=== PATIENT | female | born 1945 | race American Indian/Alaskan Native ===

== ENCOUNTER → 2017-12-16 | Outpatient (CLI) | payer MEDICARE, OTHER ==
[~2017-12-16] MED LIST: BENZ100A PO; BUME1 PO; CLON.2 PO; HYDR1TAB94 PO; Micro-K10 MEQ; NEBI5 PO; TOCO400 PO; VITAMIN B122500 MCG PO; VITAMIN D5000 UNIT PO; Zofran4 MG PO
== END ==
LOC: LAB SHORT 16:39 → LAB 16:39
DX: N39.0 Urinary tract infection, site not specified (principal)
CPT/HCPCS: 87086

== ENCOUNTER 2018-11-18 00:26 | Day surgery (SDC) | payer MEDICARE, OTHER ==
[2018-11-18] MEDS ORDERED: NEBI10 PO ×2 (09:54→09:55)
[2018-11-18] MEDS ORDERED: EDARBYCLOR 40-1 EACH PO (09:55)
[2018-11-18] MEDS ORDERED: MAGOXI400 PO (09:57)
--- NOTE | 2018-11-18 10:04 | NUR ---
PT REPORTS SHE DRANK SO MUCH WATER "I FEEL WATER LOGGED". BLADDER SCAN SHOWS 220ML. PT VOIDED 250ML OF CLEAR YELLOW URINE. POST VOID SCAN REVEALS 0ML. PT REPORTS THAT SHE FEELS THOUGH SHE IS EMPTYING HER BLADDER, "I JUST DONT GO MUCH DURING THE DAY, ITS AT NIGHT SOON I LAY DOWN, I'M UP" VOIDING 2-3 TIMES A NIGHT.
== END 2018-11-18 09:30 | disposition home or self-care (01) ==
LOC: ATC 00:26
DX: R32 Unspecified urinary incontinence (principal); I12.9 Hypertensive chronic kidney disease with stage 1 through stage 4 chronic kidney disease, or unspecified chronic kidney disease; N18.9 Chronic kidney disease, unspecified; D63.1 Anemia in chronic kidney disease
CPT/HCPCS: 51798

== ENCOUNTER 2019-02-05 16:38 | Inpatient (IN) | payer MEDICARE, OTHER ==
[~2019-02-05] VITALS: Ht 170.2 cm; Wt 120.1 kg
[~2019-02-05 16:38] MED LIST changes: +MAGOXI400 PO; +NEBI10 PO
[2019-02-05 17:29] LABS: BASOPHILS ABSOLUTE AUTO 0.04 K/mm3 (0.00-0.23); BASOPHILS PERCENT AUTO 0 % (0-2); EOSINOPHILS ABSOLUTE AUTO 0.07 K/mm3 (0.00-0.68); EOSINOPHILS PERCENT AUTO 1 % (0-6); Hemoglobin 13.2 g/dL (11.5-16.0); IMMATURE GRAN ABSOLUTE AUTO 0.03 K/mm3 (0.00-0.10); IMMATURE GRAN PERCENT AUTO 0 % (0-1); LYMPHOCYTES ABSOLUTE AUTO 0.87 K/mm3 (0.84-5.20); LYMPHOCYTES PERCENT AUTO 9 % (21-46); MONOCYTES ABSOLUTE AUTO 0.37 K/mm3 (0.16-1.47); MONOCYTES PERCENT AUTO 4 % (4-13); Mean Corpuscular HGB 30.6 pg (26.0-34.0); Mean Corpuscular HGB Conc 32.2 g/dL (31.5-36.5); Mean Corpuscular Volume 95 fL (80-100); Mean Platelet Volume 10.5 fL (9.1-12.4); NEUTROPHILS ABSOLUTE AUTO 8.44 K/mm3 (1.96-9.15); NEUTROPHILS PERCENT AUTO 86 % (41-73); Platelet Count 245 K/mm3 (150-400); RDW Coefficient Variation 12.7 % (11.7-14.2); RDW Standard Deviation 44.7 fL (35.1-46.3); Red Blood Cell Count 4.31 M/mm3 (3.80-5.20); White Blood Cell Count 9.82 K/mm3 (4.00-11.30)
[2019-02-05 17:55] LABS: Alanine Aminotransfer (ALT/SGP 37 U/L (12-78); Albumin, Blood 3.5 g/dL (3.4-5.0); Albumin/Globulin Ratio 0.9 (0.8-1.8); Alk Phos 118 U/L (50-136); Anion Gap 6 mmol/L (6-16); Aspartate Aminotrans (AST/SGOT 78 U/L (12-37); Bilirubin, Total 1.4 mg/dL (0.1-1.0); Blood Urea Nitrogen 27 mg/dL (8-24); Bun/Creatinine Ratio 22.5 (12.0-20.0); CO2, Blood 32 mmol/L (21-32); Calcium, Blood 9.1 mg/dL (8.5-10.1); Chloride, Blood 103 mmol/L (98-108); Globulin, Blood 3.9 g/dL (2.2-4.0); Glomerular Filtration Rate 47 (60-); Glucose, Blood 130 mg/dL (70-99); Potassium, Blood 4.3 mmol/L (3.5-5.5); Sodium, Blood 141 mmol/L (136-145); Total Protein, Blood 7.4 g/dL (6.4-8.2); Troponin I <0.015 ng/mL (0.000-0.040)
[2019-02-05] MEDS ORDERED: EDARBYCLOR 40-1 EACH PO (19:29)
[2019-02-05 21:43] LABS: Source, Urine Clean Catch
[2019-02-05 21:48] LABS: Appearance, Urine Hazy (Clear); Blood, Urine 2+ (Neg); Color, Urine Yellow (P-Yellow); Glucose Qualitative, Urine Neg (Neg); Ketones, Urine 1+ (Neg); Leukocyte Esterase, Urine 3+ (Neg); Nitrite, Urine Neg (Neg); Protein, Urine 1+ (Neg); Urobilinogen, Urine 3+ (Normal)
[2019-02-05 21:53] LABS: Bilirubin, Urine 1+ (Neg)
[2019-02-05 22:04] LABS: Bacteria Many /hpf; Squamous Epithelial Cells Many /hpf (Few); White Blood Cells, Urine 50-100 /hpf (0-5)
--- NOTE | 2019-02-05 22:56 | NUR ---
NEW ADMIT FROM ER FOR ABD PAIN/ACUTE LAUREN. PT HAS VOMITED SINCE ARRIVING TO UNIT. MEDICATED WITH ZOFRAN AND FENT GIVEN FOR PAIN. IVF STARTED. PT NOW RESTING COMFORTABLY IN BED. GALLBLADDER BOOK GIVEN. NO FURTHER QUESTIONS AT THIS TIME.
[2019-02-06 04:46] LABS: BASOPHILS ABSOLUTE AUTO 0.03 K/mm3 (0.00-0.23); BASOPHILS PERCENT AUTO 0 % (0-2); EOSINOPHILS ABSOLUTE AUTO 0.02 K/mm3 (0.00-0.68); EOSINOPHILS PERCENT AUTO 0 % (0-6); Hematocrit 40.6 % (33.0-51.0); Hemoglobin 13.3 g/dL (11.5-16.0); IMMATURE GRAN ABSOLUTE AUTO 0.03 K/mm3 (0.00-0.10); IMMATURE GRAN PERCENT AUTO 0 % (0-1); LYMPHOCYTES ABSOLUTE AUTO 0.75 K/mm3 (0.84-5.20); LYMPHOCYTES PERCENT AUTO 7 % (21-46); MONOCYTES ABSOLUTE AUTO 0.56 K/mm3 (0.16-1.47); MONOCYTES PERCENT AUTO 5 % (4-13); Mean Corpuscular HGB 30.8 pg (26.0-34.0); Mean Corpuscular HGB Conc 32.8 g/dL (31.5-36.5); Mean Corpuscular Volume 94 fL (80-100); Mean Platelet Volume 10.4 fL (9.1-12.4); NEUTROPHILS ABSOLUTE AUTO 9.26 K/mm3 (1.96-9.15); NEUTROPHILS PERCENT AUTO 87 % (41-73); Platelet Count 226 K/mm3 (150-400); RDW Coefficient Variation 12.7 % (11.7-14.2); RDW Standard Deviation 43.8 fL (35.1-46.3); Red Blood Cell Count 4.32 M/mm3 (3.80-5.20); White Blood Cell Count 10.65 K/mm3 (4.00-11.30)
[2019-02-06 05:02] LABS: International Normalized Ratio 0.96; Prothrombin Time Results 10.2 Sec (9.7-11.5)
--- NOTE | 2019-02-06 05:18 | NUR ---
ASSUMED CARE OF PT POTENTIAL PREOP FOR TODAY PENDING BEING SEEN BY SURGERY. MEDICATED IV FOR PAIN AND NAUSEA.
[2019-02-06 05:24] LABS: Albumin, Blood 3.4 g/dL (3.4-5.0); Albumin/Globulin Ratio 0.8 (0.8-1.8); Bilirubin, Total 3.1 mg/dL (0.1-1.0); Bun/Creatinine Ratio 25.5 (12.0-20.0); Calcium, Blood 8.8 mg/dL (8.5-10.1); Creatinine, Blood 1.1 mg/dL (0.40-1.00); Magnesium, Blood 2.3 mg/dL (1.6-2.4); Potassium, Blood 3.7 mmol/L (3.5-5.5); Total Protein, Blood 7.4 g/dL (6.4-8.2)
--- NOTE | 2019-02-06 09:46 | NUR ---
DR. FAJARDO IN TO SEE PT, AND MADE AWARE OF PT HTN. PT CONTINUES TO HAVE ELEVATED BP AFTER COREG AND CLONIDINE GIVEN AT 0736, SEE VS. SEE NEW ORDERS FROM DR. FAJARDO. WILL CTM AND MEDICATE PER EMAR. PT REPORTS "SLIGHT HEADACHE" OTHERWISE ASYPTOMATIC. WILL MONITOR FREQENTLY.
--- NOTE | 2019-02-06 13:19 | NUR ---
PT LEFT UNIT AT THIS TIME FOR SURGERY
--- NOTE | 2019-02-06 13:37 | NUR ---
History, Chart, Medications and Allergies reviewed before start of procedure. Patient confirms NPO status and agrees with scheduled surgery. Lungs clear T/O to Auscultation, THOUGH DECREASED IN BASES. Pre-Op teaching done. Pt verbalizes understanding.
--- NOTE | 2019-02-06 13:53 | NUR ---
REPORT TO FLOOR RN, PATIENT SURGERY WILL BE DELAYED UNTIL FURTHER NOTICE DUE TO UNANTICIPATED POWER FAILURE. PATIENT IS TO REMAIN NPO IN THE MEANTIME.
--- NOTE | 2019-02-06 14:22 | NUR ---
RECEIVED WORD THAT POWER HAS BEEN RESTORED, PATIENT RETREIVED AND REPORT TO KEN GARG RN TO ASSUME CARE.
--- NOTE | 2019-02-06 15:47 | NUR ---
REPORT GIVEN TO MARLINE BRADLEY RN AT [id number]
--- NOTE | 2019-02-06 16:22 | NUR ---
ASSUMED CARE OF PT, PT STILL IN OR.
--- NOTE | 2019-02-06 18:42 | NUR ---
SUMMARY S/P LAB LAUREN, DENIES ANY PAIN, VSS, TAKING SIPS OF WATER, SLEEPY BUT AWAKENS EASILY, NO ACUTE CHANGES THIS SHIFT.
--- NOTE | 2019-02-07 03:03 | NUR ---
ASSUMED CARE OF PATIENT AT APPROXIMATELY 1915 FROM KIRK Lr RN. PATIENT ALERT AND ORIENTED X4; DROWSY AT TIMES BUT WAKES EASILY TO VERBAL STIMULUS; PATIENT S/P LAP LAUREN; DRESSING C/D/I. PATIENT CALLED STAFF TO ROOM TO REPORT SHE NEEDED TO URINE; ALSO REPORTED TO MALIKA DE LA PAZ THAT SHE FELT WOOSY, NAUSEA AND NEEDED PAIN MEDICATION. PATIENT REPORTS PAIN WORSENS WITH MOVEMENT; MEDICATED PER EMAR. PATIENT REFUSED PO PAIN MEDICATION REPORTING IT DOESNT HELP. PATIENT INCONTINENT OF URINE; REPORTS OCCURS WHEN SHE COUGHS; ATTENDS PLACED. OXYGEN SATURATION ABOVE 90% ON 2LPM VIA NC AT START OF SHIFT; CURRENTLY ON 1LPM VIA NC (RA AT HOME). IVF INFUSING PER ORDER. PATIENT CURRENTLY RESTING IN BED; CALL LIGHT IN REACH; BED IN LOWEST POSISTION; BED ALARM ON; WILL CONTINUE TO MONITOR AND ASSESS UNTIL END OF SHIFT.
[2019-02-07 05:18] LABS: Albumin, Blood 2.6 g/dL (3.4-5.0); Albumin/Globulin Ratio 0.7 (0.8-1.8); Bilirubin, Total 3.5 mg/dL (0.1-1.0); Bun/Creatinine Ratio 23.8 (12.0-20.0); Calcium, Blood 7.9 mg/dL (8.5-10.1); Creatinine, Blood 1.22 mg/dL (0.40-1.00); Globulin, Blood 3.5 g/dL (2.2-4.0); Potassium, Blood 3.4 mmol/L (3.5-5.5); Total Protein, Blood 6.1 g/dL (6.4-8.2)
--- NOTE | 2019-02-07 06:43 | NUR ---
PATIENT COMPLAINED OF ABDOMINAL PAIN THIS MORNING; MEDICATED PER EMAR; PATIENT SLEPT ABOUT EIGHT HOURS; NO OTHER ACUTE CHANGES TO REPORT.
--- NOTE | 2019-02-07 16:56 | NUR ---
SHIFT SUMMARY NO ACUTE CHANGES THIS SHIFT. VSS. LAP SITES TO ABD ARE CDI. TYLENOL FOR PAIN PRN. PT STILL DOES NOT HAVE AN APPETITE. HAS ONLY TAKEN SMALL BITES OF REG DIET. PT STILL OCCASSIONALLY NAUSEATED. GIVEN PHENERGAN WHICH HAS BEEN EFFECTIVE. UP WITH SBA TO THE RESTROOM AND CHAIR. IVF INFUSING PER ORDERS. USES CALL LIGHT APPROPRIATELY. WILL CONT TO MONITOR.
--- NOTE | 2019-02-08 03:09 | NUR ---
SHIFT SUMMARY: PATIENT CONTINUES TO HAVE NAUSEA, PATIENT STATES REGLAN DOES NOT WORK/ZOFRAN DOES NOT WORK LONG ENOUGH AND PATIENT REQUESTING PHENERGAN PER MD ORDERS (SEE MAR). PATIENT GROGGY WITH SOME CONFUSION AFTER RECIEVING PHENERGAN, BED EXIT ALARM ON. PATIENT UP TO BATHROOM X3 THIS SHIFT WITH FWW AND ASSIST. INCISION SITE LOOKS C/D/I WITH NO SIGN OF INFECTION. VSS, NO OTHER ISSUES NOTED, BED LOW AND LOCKED.
[2019-02-08 05:15] LABS: BASOPHILS ABSOLUTE AUTO 0.01 K/mm3 (0.00-0.23); BASOPHILS PERCENT AUTO 0 % (0-2); EOSINOPHILS ABSOLUTE AUTO 0.09 K/mm3 (0.00-0.68); EOSINOPHILS PERCENT AUTO 1 % (0-6); Hemoglobin 10.7 g/dL (11.5-16.0); IMMATURE GRAN ABSOLUTE AUTO 0.04 K/mm3 (0.00-0.10); IMMATURE GRAN PERCENT AUTO 1 % (0-1); LYMPHOCYTES ABSOLUTE AUTO 0.86 K/mm3 (0.84-5.20); LYMPHOCYTES PERCENT AUTO 12 % (21-46); MONOCYTES ABSOLUTE AUTO 0.45 K/mm3 (0.16-1.47); MONOCYTES PERCENT AUTO 6 % (4-13); Mean Corpuscular HGB 31.1 pg (26.0-34.0); Mean Corpuscular HGB Conc 32.4 g/dL (31.5-36.5); Mean Corpuscular Volume 96 fL (80-100); Mean Platelet Volume 10.6 fL (9.1-12.4); NEUTROPHILS ABSOLUTE AUTO 5.67 K/mm3 (1.96-9.15); NEUTROPHILS PERCENT AUTO 80 % (41-73); Platelet Count 126 K/mm3 (150-400); RDW Coefficient Variation 13.2 % (11.7-14.2); RDW Standard Deviation 46.5 fL (35.1-46.3); Red Blood Cell Count 3.44 M/mm3 (3.80-5.20); White Blood Cell Count 7.12 K/mm3 (4.00-11.30)
[2019-02-08 05:44] LABS: Albumin, Blood 2.3 g/dL (3.4-5.0); Albumin/Globulin Ratio 0.7 (0.8-1.8); Bilirubin, Total 2.8 mg/dL (0.1-1.0); Bun/Creatinine Ratio 23.9 (12.0-20.0); Calcium, Blood 7.6 mg/dL (8.5-10.1); Creatinine, Blood 1.34 mg/dL (0.40-1.00); Globulin, Blood 3.4 g/dL (2.2-4.0); Potassium, Blood 3.2 mmol/L (3.5-5.5); Total Protein, Blood 5.7 g/dL (6.4-8.2)
--- NOTE | 2019-02-08 16:30 | NUR ---
SHIFT SUMMARY NO ACUTE CHANGES TODAY. VSS. STERI STRIPS TO ABD ARE CDI. MECLIZINE STARTED FOR VERTIGO AND PT REPORTS IT HAS BEEN EFFECTIVE AND IS LESS DIZZY. PT REPORTS NAUSEA IS ALSO BETTER AND IS ABLE TO EAT SMALL BITES OF JELLO AND SOME SOLID FOODS. IVF INFUSING PER ORDERS. 1 SBA TO THE BSC. PT DENIES PAIN. MEDICATED WITH TYLENOL X1 FOR HEADACHE WHICH WAS EFFECTIVE. USES CALL LIGHT APPROPRIATELY.
[2019-02-09 04:39] LABS: Albumin, Blood 2.3 g/dL (3.4-5.0); Albumin/Globulin Ratio 0.7 (0.8-1.8); Bilirubin, Total 1.6 mg/dL (0.1-1.0); Bun/Creatinine Ratio 20.4 (12.0-20.0); Calcium, Blood 7.7 mg/dL (8.5-10.1); Creatinine, Blood 1.13 mg/dL (0.40-1.00); Globulin, Blood 3.3 g/dL (2.2-4.0); Potassium, Blood 3.1 mmol/L (3.5-5.5); Total Protein, Blood 5.6 g/dL (6.4-8.2)
--- NOTE | 2019-02-09 05:14 | NUR ---
SHIFT SUMMARY PT RESTED WELL T/O NIGHT. AAOX4. POD#3. ABD INCISION C/D/I. PT UP SBA TO BSC, BACK TO BED. PT REPORTING DECREASED VERTIGO THIS SHIFT WITH ANTIVERT. ENCOURAGE DEEP BREATHING + AMBULATION TODAY WITH ASSISTANCE TOLERATED. CALL LIGHT IN REACH. PT RESTING AT THIS TIME.
--- NOTE | 2019-02-09 18:32 | NUR ---
SUMMARY: PT IS POD3 LAP LAUREN. NO ACUTE CHANGE TODAY. PT HAS BEEN SLEEPING ON AND OFF T/O THE DAY, UP WITH SBA TO BATHROOM AND IN RECLINER FOR LUNCH/DINNER. PT HAS DENIED PAIN, GIVEN ANTIVERT FOR VERTIGO X2, WHICH PT REPORTS "HELPS ALOT". NO REPORT OF N/V, IS PASSING GAS, NO BM TODAY. VSS AND SURGICAL SITES WNL. NO ACUTE SAFETY CONCERNS AT THIS TIME.
--- NOTE | 2019-02-10 07:36 | NUR ---
SHIFT SUMMARY PT A&O X4 T/O SHIFT. POD#4 ABD SOFT; LAP SITES CDI; BT X4; PT DECLINED MEDICATIONS T/O SHIFT. PT C/O VERTIGO, STS SLIGHT IMPROVMENT THIS AM. SBA TO TOILET. SCD'S TO BLE'S. CALL LIGHT IN REACH; PT DEMONSTRATES USE. REPORT GIVEN TO DAY SHIFT RN.
--- NOTE | 2019-02-10 15:59 | NUR ---
SUMMARY: PT IS POD4 LAP LAUREN. NO CHANGE TODAY. VSS. PT HAS DENIED PAIN/N/V. STATES VERTIGO "IS BETTER" AND DENIED NEEDING ANTIVERT. PT ENCOURAGED TO AMBULATE AND TAKE PO TOLERATED. REPORTS DECREASED APPETITE, ABLE TO TOLERATE JELLO AND A BANANA. PLAN IS TO DC HOME TOMORROW PER DR. FAJARDO. WILL CTM AND REPORT TO KARLOS ISLAS.
--- NOTE | 2019-02-11 07:30 | NUR ---
pt stated she feels better passing flatus no bm stated she still has off and on dizziness and nausea no emesis overall improved wanting to go home
--- NOTE | 2019-02-11 09:24 | NUR ---
pt stated she was able to eat some breaksfast
[2019-02-11] MEDS ORDERED: CHLO25B PO (10:00)
--- NOTE | 2019-02-11 12:30 | NUR ---
dr camacho and dr miller by to see pt earlier ok to discharge home pt had some nausea with lunch no emesis did have a bm with alot of gas prior to lunch pt dressed awaiting ride
--- NOTE | 2019-02-11 13:26 | NUR ---
wc escort to car
== END 2019-02-11 13:26 | disposition home or self-care (01) | DRG 418 ==
LOC: ER 16:38 → SURS 16:39 → ER 18:42 → SURS 18:42
PROVIDERS: Emergency Medicine; Nurse Practitioner Acute Care; Surgery; ADMIT Internal Medicine
PROC: BF03YZZ Plain Radiography of Gallbladder and Bile Ducts using Other Contrast (ICD-10-PCS; 2019-02-06)
PROC: 0FT44ZZ Resection of Gallbladder, Percutaneous Endoscopic Approach (ICD-10-PCS; principal; 2019-02-06 14:45)
DX: K80.43 Calculus of bile duct with acute cholecystitis with obstruction (principal); Z68.41 Body mass index [BMI] 40.0-44.9, adult; J44.9 Chronic obstructive pulmonary disease, unspecified; I12.9 Hypertensive chronic kidney disease with stage 1 through stage 4 chronic kidney disease, or unspecified chronic kidney disease; N18.3 Chronic kidney disease, stage 3 (moderate); M85.80 Other specified disorders of bone density and structure, unspecified site; H81.10 Benign paroxysmal vertigo, unspecified ear; E66.01 Morbid (severe) obesity due to excess calories; Z88.5 Allergy status to narcotic agent; Z88.8 Allergy status to other drugs, medicaments and biological substances; Z79.899 Other long term (current) drug therapy; Z87.11 Personal history of peptic ulcer disease; Z87.891 Personal history of nicotine dependence
CPT/HCPCS: 36415; 71046; 74300; 76705; 80053; 81001; 83690; 83735; 84484; 85025; 85610; 87086; 88304; 93005; 93010; 94760; 96374; 96375; 96376; 99285-25; A9270; A9270-GY; C1729; C9113; G0378; J0330; J0690; J1610; J1650; J2250; J2405; J2550; J2704; J2710; J3010; J3480; J7030; J7120

== ENCOUNTER 2019-07-10 15:07 | Inpatient (IN) | payer MEDICARE, OTHER ==
[~2019-07-10] VITALS: Ht 167.6 cm; Wt 115.1 kg
[~2019-07-10 15:07] MED LIST changes: +CHLO25B PO; +EDARBYCLOR 40-1 EACH PO
[2019-07-10 16:02] LABS: Alanine Aminotransfer (ALT/SGP 27 U/L (12-78); Albumin, Blood 3.5 g/dL (3.4-5.0); Albumin/Globulin Ratio 0.9 (0.8-1.8); Alk Phos 119 U/L (50-136); Anion Gap 8 mmol/L (6-16); Aspartate Aminotrans (AST/SGOT 26 U/L (12-37); Bilirubin, Total 0.5 mg/dL (0.1-1.0); Blood Urea Nitrogen 30 mg/dL (8-24); Bun/Creatinine Ratio 26.8 (12.0-20.0); CO2, Blood 24 mmol/L (21-32); Calcium, Blood 8.8 mg/dL (8.5-10.1); Chloride, Blood 109 mmol/L (98-108); Creatinine, Blood 1.12 mg/dL (0.40-1.00); Globulin, Blood 3.9 g/dL (2.2-4.0); Glomerular Filtration Rate 51 (60-); Glucose, Blood 108 mg/dL (70-99); Sodium, Blood 141 mmol/L (136-145); Total Protein, Blood 7.4 g/dL (6.4-8.2); Troponin I <0.015 ng/mL (0.000-0.040)
[2019-07-10 16:34] LABS: BASOPHILS ABSOLUTE AUTO 0.05 K/mm3 (0.00-0.23); BASOPHILS PERCENT AUTO 1 % (0-2); EOSINOPHILS ABSOLUTE AUTO 0.21 K/mm3 (0.00-0.68); EOSINOPHILS PERCENT AUTO 3 % (0-6); Hematocrit 37.7 % (33.0-51.0); Hemoglobin 12.2 g/dL (11.5-16.0); IMMATURE GRAN ABSOLUTE AUTO 0.02 K/mm3 (0.00-0.10); IMMATURE GRAN PERCENT AUTO 0 % (0-1); LYMPHOCYTES ABSOLUTE AUTO 2.02 K/mm3 (0.84-5.20); LYMPHOCYTES PERCENT AUTO 27 % (21-46); MONOCYTES PERCENT AUTO 7 % (4-13); Mean Corpuscular HGB 31.4 pg (26.0-34.0); Mean Corpuscular HGB Conc 32.4 g/dL (31.5-36.5); Mean Corpuscular Volume 97 fL (80-100); Mean Platelet Volume 10.5 fL (9.1-12.4); NEUTROPHILS ABSOLUTE AUTO 4.71 K/mm3 (1.96-9.15); NEUTROPHILS PERCENT AUTO 63 % (41-73); Platelet Count 238 K/mm3 (150-400); RDW Coefficient Variation 13.4 % (11.7-14.2); RDW Standard Deviation 47.8 fL (35.1-46.3); Red Blood Cell Count 3.89 M/mm3 (3.80-5.20); White Blood Cell Count 7.51 K/mm3 (4.00-11.30)
[2019-07-10 16:53] LABS: Free Thyroxine 1.16 ng/dL (0.70-1.60); Magnesium, Blood 1.9 mg/dL (1.6-2.4)
[2019-07-10 16:55] LABS: Thyroid Stimulating Hormone 1.86 uIU/mL (0.360-4.800)
--- NOTE | 2019-07-10 21:14 | NUR ---
PCU ADMIT PT BROUGHT TO PCU RM 15 FROM ER BY ZHOU @ APPROX 1945. PT A&O X4. PT ABLE TO AMBULATE FROM [facility] TO PCU BED W/ SBA. VSS. MONITOR SHOWS AFIB, HR 110's. CARDIZEM GTT INFUSING @ 5 MG/HR UPON ARRIVAL TO UNIT. PIV TO RAC SITE W/ NOTED REDNESS W/ PT REPORT OF SKIN SENSITIVITY TO THE TRANSPARENT TAPE ON THE IV DRESSING. UPON REASSESSMENT OF IV SITE @ APPROX 2029, SITE NOTED TO BE MORE RED, FURTHER UP SITE/VEIN. CARDIZEM GTT PLACED ON STANDBY W/ CONCERN OF MEDICATION REACTION RATHER THAN TAPE. PT REPORTS HIGH SENSITIVITY TO MOST MEDICATIONS, ESPECIALLY PAIN MEDICATIONS AND ANTIBIOTICS. CALL TO ALETA ALBERTS @ APPROX 2129 TO UPDATE ON CARDIZEM GTT ON STANDBY W/ NO CHANGE IN HR AND POSSIBLE MEDICATION REACTION. PHARMACY INTAKE TECHNICIAN W/ INSTRUCTION TO KEEP MED ON STANDBY. NO FURTHER ORDERS/INSTRUCTIONS AT THIS TIME. WILL CONTINUE TO MONITOR AND PROVIDE CARE.
--- NOTE | 2019-07-10 22:28 | NUR ---
CARDIZEM UPDATE REASSESSMENT OF RAC PIV SITE @ 2230 W/ NOTED DECREASE IN REDNESS & PT REPORT OF NO FURTHER ITCHING TO SITE THAT PT REPORTS TO HAVE PREVIOUSLY BEEN ITCHING. ORTHO/PROSTHETIC AIDE ARISTEO IN ROOM W/ ORDERS TO DC CARDIZEM AND PLACE MED ON PT ALLERGY LIST & FURTHER ORDERS TO START AMIODARONE GTT.
[2019-07-11 04:03] LABS: BASOPHILS ABSOLUTE AUTO 0.04 K/mm3 (0.00-0.23); BASOPHILS PERCENT AUTO 1 % (0-2); EOSINOPHILS PERCENT AUTO 4 % (0-6); Hematocrit 36.4 % (33.0-51.0); Hemoglobin 11.7 g/dL (11.5-16.0); IMMATURE GRAN ABSOLUTE AUTO 0.02 K/mm3 (0.00-0.10); IMMATURE GRAN PERCENT AUTO 0 % (0-1); LYMPHOCYTES ABSOLUTE AUTO 2.07 K/mm3 (0.84-5.20); LYMPHOCYTES PERCENT AUTO 28 % (21-46); MONOCYTES ABSOLUTE AUTO 0.53 K/mm3 (0.16-1.47); MONOCYTES PERCENT AUTO 7 % (4-13); Mean Corpuscular HGB 30.6 pg (26.0-34.0); Mean Corpuscular HGB Conc 32.1 g/dL (31.5-36.5); Mean Corpuscular Volume 95 fL (80-100); Mean Platelet Volume 10.4 fL (9.1-12.4); NEUTROPHILS ABSOLUTE AUTO 4.49 K/mm3 (1.96-9.15); NEUTROPHILS PERCENT AUTO 60 % (41-73); Platelet Count 232 K/mm3 (150-400); RDW Coefficient Variation 13.3 % (11.7-14.2); RDW Standard Deviation 46.6 fL (35.1-46.3); Red Blood Cell Count 3.82 M/mm3 (3.80-5.20); White Blood Cell Count 7.45 K/mm3 (4.00-11.30)
[2019-07-11 04:23] LABS: Calcium, Blood 8.5 mg/dL (8.5-10.1); Creatinine, Blood 1.25 mg/dL (0.40-1.00); Potassium, Blood 3.7 mmol/L (3.5-5.5)
--- NOTE | 2019-07-11 06:38 | NUR ---
SHIFT SUMMARY PT A&O X4. VSS. MONITOR SHOWS AFIB, HR 80's-110's. PT W/ ADVERSE REACTION TO IV CARDIZEM W/ SKIN REDNESS, SWELLING, AND ITCHING TO RAC PIV SITE EXTENDING UPWARDS. MEDICATION PLACED ON STANDBY, EVP SALES ARISTEO NOTIFIED W/ EVP SALES IN TO SEE PT W/ NEW ORDERS FOR DC CARDIZEM AND GIVE IV AMIODARONE. IV AMIODARONE INFUSING PER ORDERS, PT TOLERATING WELL. PT W/ LOW BP THIS SHIFT & REPORT OF DIZZINESS X2 THIS SHIFT W/ AMBULATION TO BATHROOM. PT CALLING APPROPRIATELY FOR SBA TO BATHROOM, OTHERWISE PT NORMALLY INDEPENDENT. PT REPORTS IMPROVEMENT IN SYMPTOMS W/ NORMALIZATION OF BP. WILL CONTINUE TO MONITOR AND PROVIDE CARE UNTIL REPORT OFF TODAY SHIFT RN.
--- NOTE | 2019-07-11 11:25 | NUR ---
ECHOCARDIOGRAM COMPLETED
--- NOTE | 2019-07-11 12:30 | NUR ---
ASSUMED CARE OF PATIENT AT 1200. A&O X 4, IN GOOD SPIRITS, TALKATIVE. DENIES CHEST DISCOMFORT AND SOB, HR 110'S. AMIODORONE GTT INFUSING AT 16.6 ML/HR (0.498 MG/MIN) IN TO L UPPER ARM IV. LUNGS CTAB. BRUISING NOTED ON L UPPER ARM NEAR IV SITE. AWAITING VISIT FROM CATEGORY CONSULTANT AND CARDIAC ECHO.
--- NOTE | 2019-07-11 18:30 | NUR ---
SHIFT SUMMARY: NO C/O OF CHEST DISCOMFORT OR SOB. VSS, O2 SAT 96-98% ON RA. HR 102-113, AFIB. CARDIAC ECHO COMPLETED, STILL AWAITING VISIT FROM CARDIOLOGY. ANJELICA IV REMOVED IT APEARED INFILTRATED; NEW IV PLACED IN R AC. RASH ON R ARM HAS RESOLVED. GOOD APPETITE.
--- NOTE | 2019-07-11 21:00 | NUR ---
CARE ASSUMPTION PT A&O X4. VSS. MONITOR SHOWS AFIB, HR 80's-120's. MD BURDICK IN ROOM TO SEE PT W/ INSTRUCTIONS TO DC AMIO GTT. WILL CONTINUE TO MONITOR AND PROVIDE CARE.
[2019-07-12 04:23] LABS: BASOPHILS ABSOLUTE AUTO 0.05 K/mm3 (0.00-0.23); BASOPHILS PERCENT AUTO 1 % (0-2); EOSINOPHILS ABSOLUTE AUTO 0.23 K/mm3 (0.00-0.68); EOSINOPHILS PERCENT AUTO 3 % (0-6); Hematocrit 37.1 % (33.0-51.0); IMMATURE GRAN ABSOLUTE AUTO 0.01 K/mm3 (0.00-0.10); IMMATURE GRAN PERCENT AUTO 0 % (0-1); LYMPHOCYTES ABSOLUTE AUTO 1.93 K/mm3 (0.84-5.20); LYMPHOCYTES PERCENT AUTO 27 % (21-46); MONOCYTES ABSOLUTE AUTO 0.49 K/mm3 (0.16-1.47); MONOCYTES PERCENT AUTO 7 % (4-13); Mean Corpuscular HGB 30.6 pg (26.0-34.0); Mean Corpuscular HGB Conc 32.3 g/dL (31.5-36.5); Mean Corpuscular Volume 95 fL (80-100); Mean Platelet Volume 10.1 fL (9.1-12.4); NEUTROPHILS ABSOLUTE AUTO 4.38 K/mm3 (1.96-9.15); NEUTROPHILS PERCENT AUTO 62 % (41-73); Platelet Count 216 K/mm3 (150-400); RDW Coefficient Variation 13.2 % (11.7-14.2); RDW Standard Deviation 45.6 fL (35.1-46.3); Red Blood Cell Count 3.92 M/mm3 (3.80-5.20); White Blood Cell Count 7.09 K/mm3 (4.00-11.30)
[2019-07-12 04:43] LABS: Bun/Creatinine Ratio 22.7 (12.0-20.0); Calcium, Blood 8.8 mg/dL (8.5-10.1); Creatinine, Blood 1.28 mg/dL (0.40-1.00)
--- NOTE | 2019-07-12 06:57 | NUR ---
MD BURDICK IN TO SEE PT @ APPROX 0630 W/ INSTRUCTIONS TO GIVE BYSTOLIC AT THAT TIME.
--- NOTE | 2019-07-12 07:28 | NUR ---
SHIFT SUMMARY PT A&O X4. VSS. MONITOR SHOWS AFIB, HR 80's-120's. PRN IV METOPROLOL GIVEN X1 THIS SHIFT. LUNG SOUNDS CLEAR, SPO2 > 92% ON RA. NO EVENTS/CHANGES THIS SHIFT. REPORT GIVEN TO DAY SHIFT RN.
--- NOTE | 2019-07-12 09:00 | NUR ---
CARE ASSUMED REPORT RECEIVED, CARE ASSUMED AT 0700 FROM JANEL DE LOS SANTOS. PT ASLEEP ON ROUNDS, BUT AROUSES EASILY FOR ASSESSMENT. VITALS STABLE. PT REPORTS SLIGHT DIZZINESS AT REST, STATES IT WAS WORSE WHEN SHE GOT UP TO USE THE RESTROOM. STATES SHE BELIEVES IT IS RELATED TO BLOOD PRESSURE. EDUCATED ON CURRENT BLOOD PRESSURE. PT STATES SHE NORMALLY RUNS HIGH, SO THAT COULD BE CONTRIBUTING. MORNING DOSE OF CLONIDINE AND AZILSARTAN/CHLORTHALIDONE HELD - WILL REASSESS. EDUCATED PT ON FURTHER SYMPTOMS OF LOW BLOOD PRESSURE AND ENCOURAGED HER TO NOTIFY STAFF IF SHE FEELS WORSENING SYMPTOMS. CALL LIGHT IN REACH. PT AGREES TO NOT GET OUT OF BED WITHOUT STAFF PRESET.
--- NOTE | 2019-07-12 09:25 | NUR ---
DIZZINESS CALLED INTO PT'S ROOM SHE REPORTS DIZZINESS HAS PROGRESSED TO SEVERE LETHARGY AND TINGLING OF HEAD/ARMS/LEGS. PT AWAKE BUT DOES APPEAR SLEEPY. ABLE TO REDIRECT PT WITH CONVERSATION ABOUT HER FAMILY. RECHECKED BLOOD PRESSURE WHICH HAS FURTHER DECLINED. SEE FLOWSHEET. PT UPDATED. BOLUS STARTED. MONY, STRUCTURAL BIOLOGIST TO PATIENTS BEDSIDE FOR SUPPORT.
--- NOTE | 2019-07-12 09:30 | NUR ---
PROVIDER COMMUNICATION SPOKE WITH DR. JIANG, BRICK CARRIER REGARDING PT'S EPISODE OF DIZZINESS, FLUID BOLUS, HOLDING OF MORNING CARDIAC MEDICATIONS. NO NEW ORDERS AT THIS TIME.
--- NOTE | 2019-07-12 13:06 | NUR ---
UPDATE SINCE PREVIOUS NOTE, PT NO LONGER SYMPTOMATIC. BP IMPROVED. HR STABLE. SEE FLOWSHEET. SETUP ASSIST FOR LUNCH. STANDBY ASSIST TO BATHROOM WITH NO COMPLICATIONS.
--- NOTE | 2019-07-12 19:21 | NUR ---
REPORT TO JANEL DE LOS SANTOS TO ASSUME CARE. BEDSIDE ROUNDING COMPLETE.
--- NOTE | 2019-07-12 19:36 | NUR ---
SUMMARY SINCE PREVIOUS NOTES, PT HAS HAD NO FURTHER EPISODES OF DIZZINESS. UP IN ROOM INDEPENDENTLY. VITALS STABLE. PT HAS REMAINED IN AFIB RATE IN THE LOW 100'S. PT HAS CALLED APPRPRIATELY FOR NEEDS. GOOD APPETITE. PT HAS EXPRESSED CONCERN THAT HER HOME REGIME IS INACCURATE AND THAT SHE NORMALLY SELF MEDICATES IN THAT SHE TAKES LESS THAN PRESCRIBED. WHEN HER BLOOD PRESSURE IS 100'S/60'S SHE WILL TAKE SMALLER DOSES BECAUSE THEY LOWER THEM FURTHER. PT EXPRESSED CONCERN THAT DR. VAUGHN WOULD BE FRUSTRATED BY THIS, ENCOURAGED HER TO SHARE THIS WITH HIM ON ROUNDING TOMORROW AND THAT IT IS GOOD TO BE AWARE OF HOW HER BODY RESPONDS TO MEDICATIONS. ALSO UPDATED JANEL DE LOS SANTOS ON THIS INFORMATION.
--- NOTE | 2019-07-12 20:30 | NUR ---
CARE ASSUMPTION PT A&O X4. VSS. MONITOR SHOWS AFIB, HR 90-110. PT VOICING CONCERNS FOR LIFE STRESSORS ATTRIBUTING TO CURRENT HEALTH CONDITION. PT FURTHER REPORTING CONCERN FOR MEDICATION USE AND DIZZINESS. PT REPORTS "I'VE TAKEN BYSTOLIC AND CLONIDINE FOR YEARS AND HAVEN'T HAD ANY ISSUES." PT REPORTS NOT ALWAYS TAKING BP MEDICATION IN THE AM AT HOME. WILL CONTINUE TO MONITOR AND PROVIDE CARE.
--- NOTE | 2019-07-13 05:51 | NUR ---
SHIFT SUMMARY PT A&O X4. VSS. MONITOR SHOWS AFIB, HR 80-110's. PT BP LOW THIS AM W/ PT REPORT OF "IT WILL COME UP WHEN I JUICE UP FOR THE DAY." PT REPORTS BRIEF DIZZINESS X1 THIS SHIFT WHILE CHANGING FROM LAYING TO SITTING UP POSITION IN BED @ APPROX 2300 THIS SHIFT. PT DENIES FURTHER EPISODES OF DIZZINESS. PT NPO SINCE MIDNIGHT FOR POSSIBLE JULI TODAY. WILL CONTINUE TO MONITOR AND PROVIDE CARE UNTIL REPORT OFF TODAY SHIFT RN.
--- NOTE | 2019-07-13 13:19 | NUR ---
Advance directive education attempted/ Spiritual care visit conducted. Upon receiving an admit referral for advance directive education and spiritual care, I visited patient. Patient immediately told me she has no interest in advance directive education or even a conversation about it and patient wondered why the referral would have been sent to me. Patient is open to a discussion about her medical situation, her quaker beliefs and about her family. Patient states that she is discouraged by not seeing an improvement in her health and having no answers in sight. I listen empathically, reinforce helpful attitudes and practices and provide companionship. I was about to pray with patient when patient received a call from someone she was waiting to hear from so she excused herself from the conversation. I will continue to remain available to patient and family.
--- NOTE | 2019-07-13 18:09 | NUR ---
SHIFT SUMMARY PT A&Ox4. CALM AND COOPERATIVE WITH CARE. PT RESTING IN BED DURING SHIFT. UP TO BATHROOM WITH SBA. PT DENIES SOB, N/V, CHEST PAIN AND GENERALIZED PAIN. PT REPORTS DIZZINESS WITH ACTIVITY AND CAN FEEL HEART "FLUTTERING" IN CHEST AT TIMES. PT REFUSED BYSTOLIC THIS AM DUE TO BP, STATES SHE WILL END UP WITH LOW BP. EDUCATED PT ON BYSTOLIC. PER CONSULT NOTE, DR VAUGHN TO FOLLOW UP WITH PT TODAY, CALLED OFFICE AND PT NEEDS TO BE SEEN BY ONCALL PROVIDED. NOTIFIED DR JIANG, IN TO SEE PT, PLANS FOR JULI THIS AM. HR 90-120'S, OTHER VSS. NO OTHER ACUTE CHANGES NOTED. WILL CONTINUE TO MONITOR.
--- NOTE | 2019-07-14 05:39 | NUR ---
SHIFT SUMMARY PT SLEEPING IN ROOM COMFORTABLY AT THIS TIME. NO ACUTE CHANGES IN STATUS T/O NIGHT. PT SLEPT WELL. DENIED ANY CP OR SOB. RESP EVEN UNLABORED ON RA W/ SATS >92%. PT WAS NPO AT MIDNIGHT FOR JULI PROCEDURE THIS AM. PT REPORTS HAS BEEN EDUCATED ON PROCEDURE. DENIE OTHER NEEDS. CALL LIGHT IS WITHIN REACH.
--- NOTE | 2019-07-14 07:00 | NUR ---
REPORT AND WALKING ROUNDS WITH OTF ISLAS. ASSUMED PT CARE.
--- NOTE | 2019-07-14 07:45 | NUR ---
VSS. ASSESSMENT CHARTED. DR JIANG TO ROOM. PLAN TO JULI WITH CARDIOVERSION THIS AM WITH ANESTHESIOLOGY. CONSENT SIGNED PRIOR TO THIS RN SHIFT AND ON FRONT OF CHART. PT ALERT AND ORIENTED. ABLE TO COMMUNICATE NEEDS. CALL LIGHT IN REACH. NPO FOR PROCEDURE.
--- NOTE | 2019-07-14 10:28 | NUR ---
PT WITH VISITOR AT BEDSIDE. REPEAT EKG COMPLETE AND PLACED ON CHART. PT DENIES CP, DENIES SOB.
--- NOTE | 2019-07-14 10:50 | NUR ---
DR MONTALVO TO ROOM FOR EVAL. PLAN TO CONTINUE TO MONITOR PT OVERNIGHT AND WAIT FOR CARDIOLOGY TO SIGN OFF. PT AGREEABLE.
--- NOTE | 2019-07-14 14:43 | NUR ---
PT UP TO RR INDEPENDENTLY. DENIES CP OR SOB WITH EXERTION.
--- NOTE | 2019-07-14 16:13 | NUR ---
PT IN NO DISTRESS. VSS.
--- NOTE | 2019-07-14 16:40 | NUR ---
LISET RN ALERTED THIS RN OF BREIF RHYTHM CHANGE. PT HAD AN EPISODE OF TACHYCARDIA, RATE 150'S. UPON ASSESSING PT, RHYTHM BACK TO SINUS RATE 60. PT DENIES CURRENT SYMPTOMS. STATES SHE HAD A DANIELS THAT RESOLVED.
--- NOTE | 2019-07-14 16:52 | NUR ---
DR JIANG PAGED RE CHANGE IN RHYTHM.
--- NOTE | 2019-07-14 17:06 | NUR ---
SHIFT SUMMARY PT REMAINED ALERT AND ORIENTED THROUGHOUT SHIFT, CARDIOVERTED THIS AM BY DR JIANG. NO ADVERSE EVENTS DURING PROCEDURE. VSS STABLE THROUGHOUT DAY. PT ABLE TO COMMUNICATED NEEDS AND USES CALL LIGHT APPROPRIATELY. TOLERATING DIET WELL. NO N/V. PT ABLE TO MOVE INDEPENDENTLY IN ROOM WITH NO COMPLAINTS OF CP, SOB OR DIZZINESS. PLAN TO OBSERVE OVERNIGHT. PT HAD RUN OF SVT AT APPROX 1635. SIGNWRITER PAGED WITH NO CALL BACK. WILL CONTINUE TO PAGE.
--- NOTE | 2019-07-14 17:50 | NUR ---
SPOKE WITH DR SOLARES RE PT RUN OF [facility], NO NEW ORDERS RECEIVED.
--- NOTE | 2019-07-14 22:21 | NUR ---
ASSUMED CARE APPROXIMATELY 1900; PT A&O; SMILING AND ANSWERING QUESTIONS; PT DENIES CHEST PAIN; STATES SHE FEELS MUCH IMPROVED AFTER CARDIOVERSION; STATES SHE BREATHES EASIER; SKID FREE SOCKS PUT ON PT; PT AMBULATES TO BATHROOM W/ NO DIFFICULTY; PT ON RA; 02 SATS >93; DENIES NEEDS AT THIS TIME; CALL LIGHT IN REACH; BED IN LOWEST POSITION; WILL CONTINUE TO MONITOR CLOSELY.
--- NOTE | 2019-07-15 07:58 | NUR ---
SHIFT SUMMARY PT A&O; PLEASANT AND COMPLIANT W/ CARE; PT STATES SHE FEELS MUCH IMPROVED FROM YESTERDAY; DENIES CHEST PAIN; PT ON RA; O2 SATS >93; C/O HEADACHE IN NIGHT; TYLENOL GIVEN PER EMAR; PT DENIED HOT RAG FOR COMFORT; PT STATED SHE HAD SHORT EPISODE OF DIZZINESS AND REMAINED IN BED; BP LOWER THAN PT STATED MERCHANDISE SHOPPER WOULD LIKE; PT RESTING COMFORTABLY IN BED; CALL LIGHT IN REACH; BED IN LOWEST POSITION; REPORT GIVEN TO DAY SHIFT RN.
--- NOTE | 2019-07-16 04:17 | NUR ---
0415 PT HAD SECOND DEGRE HEART BLOCK FOR 1 SECOND AND CONVERTED BACK NSR WITH HEART RATE 68; HAVING PERSISTENT NAUSEA PAST HOUR WITH OCCASIONAL DRY HEAVES (ZOFRAN 4MG IVP X 1 GIVEN AT 0400); PT NOTED TO HAVE NOT HAD BM SINCE 07/10/19; DR KAHN CALLED WITH ORDERS REGLAN 5MG IVP X 1 NOW AND COLACE 100MG PO BID.
--- NOTE | 2019-07-16 04:31 | NUR ---
SHIFT SUMMARY: 74 Y/O OBESE FEMALE HAD RESTLESS SHIFT AT TIMES WITH C/O NAUSEA X 2 WITH ZOFRAN 4MG IVP GIVEN WITH SLIGHT AFFECT (OCCASIONAL EPISODES DRY HEAVES THIS SHIFT); PT STATED, "BARRETT HAD NO BM PAST 6 DAYS"!; DR KAHN [employer] TECHNICIAN NOTIFIED WITH ORDERS; PT VOICED PASSING FLATUS AND BOWEL SOUNDS ACTIVE X 4; DENIES PAIN, BED LOW POSITION WITH CALL LIGHT AT SIDE.
--- NOTE | 2019-07-16 12:00 | NUR ---
Assumed care of pt at approx 0700; pt alert and oriented and complaining of "feeling backed up, I haven't pooped in 7 days". Bowel prep provided to pt and pt with mulitple loose but formed bowel movements. Pt's nausea and abd pain resolved since BM. Pt with VSS, denies SOB or difficulty breathing, breathing is even and unlabored on RA. Pt is independant in room, able to make needs knonw, remains in sinus rhythm. no acute concerns at this time.
[2019-07-16 15:28] LABS: Influenza A Negative (NEGATIVE); Influenza B Negative (NEGATIVE)
--- NOTE | 2019-07-16 17:00 | NUR ---
Pt sleeping, resting comfortably.
[2019-07-16] MEDS ORDERED: ELIQUIS5 MG PO (18:04)
--- NOTE | 2019-07-16 18:56 | NUR ---
Discharge orders recieved and discharge completed. Pt with no further questions about care at this time. Awaiting pt's friend to package pick up for transfer to home.
--- NOTE | 2019-07-16 20:00 | NUR ---
PT VOICED SHE HAS NOT TAKEN HER NIGHT MEDS AND NEEDS PM MEDS GIVEN PRIOR TO DEPARTURE; ALL EVENING MEDS GIVEN ORDERED. VITALS SIGNS DONE PRIOR DEPARTURE. PT ESCORTED OUT VIA WHEELCHAIR BY STAFF WITH FRIEND FROM HOME AT SIDE. ALL PERSONAL BELONGINGS SENT HOME WITH PATIENT.
== END 2019-07-16 20:00 | disposition home or self-care (01) | DRG 309 ==
LOC: ER 15:07 → PCU 15:08
PROVIDERS: Emergency Medicine; Family Medicine; Internal Medicine Cardiovascular Disease; Physician Assistant; ADMIT Hospitalist
PROC: 5A2204Z Restoration of Cardiac Rhythm, Single (ICD-10-PCS; principal; 2019-07-14)
DX: I48.0 Paroxysmal atrial fibrillation (principal); Z68.41 Body mass index [BMI] 40.0-44.9, adult; N18.3 Chronic kidney disease, stage 3 (moderate); K58.9 Irritable bowel syndrome, unspecified; J44.9 Chronic obstructive pulmonary disease, unspecified; K21.9 Gastro-esophageal reflux disease without esophagitis; E66.01 Morbid (severe) obesity due to excess calories; I12.9 Hypertensive chronic kidney disease with stage 1 through stage 4 chronic kidney disease, or unspecified chronic kidney disease; I95.9 Hypotension, unspecified; L29.9 Pruritus, unspecified; T46.1X5A Adverse effect of calcium-channel blockers, initial encounter; Y92.239 Unspecified place in hospital as the place of occurrence of the external cause
CPT/HCPCS: 36415; 71046; 80048; 80053; 83735; 83880; 84439; 84443; 84484; 85025; 87804; 92960; 93005; 93010; 93306; 93312; 93325; 96365; 96366; 99285-25; A9270; J0282; J1940; J2370; J2405; J2704; J2765; J7030; J7060; J7120

== ENCOUNTER 2021-04-29 17:39 | Emergency (ER) | payer MEDICARE, OTHER ==
[~2021-04-29] VITALS: Ht 172.7 cm; Wt 131.5 kg
[~2021-04-29 17:39] MED LIST changes: +ELIQUIS5 MG PO
[2021-04-29] MEDS ORDERED: BUMETANIDE 2MG (19:03)
[2021-04-29] MEDS ORDERED: KLOR-CON 1010 ME4 PO (19:04)
[2021-04-29] MEDS ORDERED: PACERONE100 M1 PO (19:04)
[2021-04-29] MEDS ORDERED: BREO ELLIPTA 11 EAC1 IH (19:04)
[2021-04-29] MEDS ORDERED: ELIQUIS5 M3 PO (19:04)
[2021-04-29] MEDS ORDERED: Prednisone10 MG PO (19:05)
[2021-04-29] MEDS ORDERED: OXYC5 PO (21:11)
== END 2021-04-29 23:01 | disposition home or self-care (01) ==
LOC: ER 17:39
DX: M16.11 Unilateral primary osteoarthritis, right hip (principal); I12.9 Hypertensive chronic kidney disease with stage 1 through stage 4 chronic kidney disease, or unspecified chronic kidney disease; N18.30 Chronic kidney disease, stage 3 unspecified; J44.9 Chronic obstructive pulmonary disease, unspecified; Z68.41 Body mass index [BMI] 40.0-44.9, adult; Z79.899 Other long term (current) drug therapy; Z79.01 Long term (current) use of anticoagulants
CPT/HCPCS: 73502; 99283-25; A9270